=== PATIENT | female | born 1985 | race American Indian/Alaskan Native ===

== ENCOUNTER 2018-12-16 16:10 | Emergency (ER) | payer OTHER ==
[2018-12-16 16:26] VITALS: BP 136/97
[2018-12-16 17:08] LABS: Bilirubin,Urine NEG (Negative); Blood,Urine NEG (Negative); Color,Urine Amber (Yellow); Protein,Urine <15 mg/dL mg/dL (Negative)
[2018-12-16 17:16] LABS: HCG Qualitative,Urine Negative (Negative)
--- NOTE | 2018-12-16 17:26 | Emergency Department Report ---
ED Abdominal Pain HPI - General Chief Complaint: Abdominal Pain Stated Complaint: CROHNS DISEASE/PAIN/BOIL BUTTOCKS Source: patient Mode of arrival: Ambulatory Limitations: No Limitations - History of Present Illness Initial Comments: This is a 33-year-old -Filipino female who presents with abdominal pain for 2 weeks. Past medical history of. She reports right sided abdominal pain that is radiating to spine. She also reports nausea without vomiting, diarrhea with mucus. She also complains of 2 boils to bilateral buttocks for 2 days. Patient states she is soaking frequently with no improvement of symptoms. She reports a past history of boils with Crohn's flare but not usually on buttocks. She reports pain currently is 8 out of 10 on pain scale and constant achy sensation. She denies chest pain, shortness of breath, bleeding, or constipation. MD Complaint: abdominal pain Onset/Timin -: week(s) Location: RUQ, RLQ Radiation: none Migration to: no migration Severity: moderate Severity scale (0 -10): 8 Quality: aching Consistency: constant Improves With: nothing Worsens With: eating Associated Symptoms: nausea, diarrhea. denies: vomiting, fever, chills, constipation, dysuria, hematemesis, hematochezia, melena, hematuria, anorexia, syncope Treatments Prior to Arrival: NSAIDs - Related Data Previous Rx's Medication Instructions Recorded Last Taken Type Acetaminophen/Codeine [Tylenol 1 tab PO Q6H PRN #12 tab 12/16/18 Unknown Rx /Codeine # 3 tab] Ciprofloxacin HCl [Cipro] 500 mg PO BID #20 tablet 12/16/18 Unknown Rx Loperamide [Imodium] 4 mg PO ONCE PRN #14 capsule 12/16/18 Unknown Rx Ondansetron [Zofran Odt] 4 mg PO Q8HR PRN #12 tab.rapdis 12/16/18 Unknown Rx Prednisone [predniSONE 10 mg 10 mg PO .TAPER #1 tab.ds.pk 12/16/18 Unknown Rx (6-Day Pack, 21 Tabs)] Allergies Allergy/AdvReac Type Severity Reaction Status Date / Time fentanyl Allergy Shortness Verified 12/16/18 16:22 of Breath NSAIDS (Non-Steroidal Allergy Shortness Verified 12/16/18 16:22 Anti-Inflamma of Breath pregabalin [From Lyrica] Allergy Shortness Verified 12/16/18 16:22 of Breath tramadol Allergy Shortness Verified 12/16/18 16:22 of Breath ED Review of Systems ROS: Stated complaint: CROHNS DISEASE/PAIN/BOIL BUTTOCKS Other details as noted in HPI Constitutional: denies: chills, fever Respiratory: denies: cough, shortness of breath, wheezing Cardiovascular: denies: chest pain, palpitations Gastrointestinal: abdominal pain, nausea, diarrhea. denies: vomiting, constipation, hematemesis, melena, hematochezia Genitourinary: denies: urgency, dysuria, discharge Musculoskeletal: denies: back pain, joint swelling, arthralgia Skin: lesions (abscess to buttocks). denies: rash Neurological: denies: headache, weakness, paresthesias Psychiatric: denies: anxiety, depression ED Past Medical Hx - Past Medical History Additional medical history: Crohn's, herniated disc - Surgical History Additional Surgical History: C/S - Social History Smoking Status: Current Every Day Smoker Substance Use Type: None - Medications Home Medications: Home Medications Medication Instructions Recorded Confirmed Last Taken Type Acetaminophen/Codeine [Tylenol 1 tab PO Q6H PRN #12 tab 12/16/18 Unknown Rx /Codeine # 3 tab] Ciprofloxacin HCl [Cipro] 500 mg PO BID #20 tablet 12/16/18 Unknown Rx Loperamide [Imodium] 4 mg PO ONCE PRN #14 capsule 12/16/18 Unknown Rx Ondansetron [Zofran Odt] 4 mg PO Q8HR PRN #12 tab.rapdis 12/16/18 Unknown Rx Prednisone [predniSONE 10 mg 10 mg PO .TAPER #1 tab.ds.pk 12/16/18 Unknown Rx (6-Day Pack, 21 Tabs)] ED Physical Exam - General Limitations: No Limitations General appearance: alert, in no apparent distress - Respiratory Respiratory exam: Present: normal lung sounds bilaterally. Absent: respiratory distress - Cardiovascular Cardiovascular Exam: Present: regular rate, normal rhythm. Absent: systolic murmur, diastolic murmur, rubs, gallop - GI/Abdominal GI/Abdominal exam: Present: soft, tenderness (RUQ & RLQ tenderness), normal bowel sounds. Absent: distended, guarding, rebound, rigid, organomegaly, mass, bruit, pulsatile mass, hernia - Back Exam Back exam: Absent: CVA tenderness (R), CVA tenderness (L) - Neurological Exam Neurological exam: Present: alert, oriented X3, normal gait - Psychiatric Psychiatric exam: Present: normal affect, normal mood - Skin Skin exam: Present: warm, dry, intact, normal color, other (1 cm x 2 non- fluctuance nodules to proximal right and left buttock, tenderness, no surrounding cellulitis or drainage). Absent: rash ED Course Vital Signs 12/16/18 12/16/18 16:22 18:08 Temperature 98.8 F Pulse Rate 110 H Respiratory 20 18 Rate Blood Pressure 136/97 O2 Sat by Pulse 97 Oximetry ED Medical Decision Making - Lab Data Result diagrams: 12/16/18 17:30 12/16/18 17:20 Lab Results 12/16/18 12/16/18 12/16/18 Range/Units 16:38 17:20 17:30 WBC 13.1 H (4.5-11.0) K/mm3 RBC 4.00 (3.65-5.03) M/mm3 Hgb 10.7 (10.1-14.3) gm/dl Hct 34.2 (30.3-42.9) % MCV 86 (79-97) fl MCH 27 L (28-32) pg MCHC 31 (30-34) % RDW 18.0 H (13.2-15.2) % Plt Count 387 (140-440) K/mm3 Lymph % (Auto) 17.5 (13.4-35.0) % [place] % (Auto) 7.0 (0.0-7.3) % Eos % (Auto) 1.1 (0.0-4.3) % Baso % (Auto) 0.1 (0.0-1.8) % Lymph # 2.3 (1.2-5.4) K/mm3 [place] # 0.9 H (0.0-0.8) K/mm3 Eos # 0.1 (0.0-0.4) K/mm3 Baso # 0.0 (0.0-0.1) K/mm3 Seg Neutrophils % 74.3 H (40.0-70.0) % Seg Neutrophils # 9.7 H (1.8-7.7) K/mm3 ESR 52 (0-20) mm/Hr Sodium 140 (137-145) mmol/L Potassium 3.8 (3.6-5.0) mmol/L Chloride 102.5 (98-107) mmol/L Carbon Dioxide 25 (22-30) mmol/L Anion Gap 16 mmol/L BUN 4 L (7-17) mg/dL Creatinine 0.7 (0.7-1.2) mg/dL Estimated GFR > 60 ml/min BUN/Creatinine Ratio 6 % Glucose 85 (65-100) mg/dL Calcium 9.1 (8.4-10.2) mg/dL Total Bilirubin 0.20 (0.1-1.2) mg/dL AST 39 (5-40) units/L ALT 35 (7-56) units/L Alkaline Phosphatase 111 (35-129) units/L Total Protein 6.9 (6.3-8.2) g/dL Albumin 3.9 (3.9-5) g/dL Albumin/Globulin Ratio 1.3 % Urine Color Andra (Yellow) Urine Turbidity Clear (Clear) Urine pH 5.0 (5.0-7.0) Ur Specific [place] 1.018 (1.003-1.030) Urine Protein <15 mg/dl (Negative) mg/dL Urine Glucose (UA) Neg (Negative) mg/dL Urine Ketones Tr (Negative) mg/dL Urine Blood Neg (Negative) Urine Nitrite Neg (Negative) Urine Bilirubin Neg (Negative) Urine Urobilinogen 2.0 (<2.0) mg/dL Ur Leukocyte Esterase Neg (Negative) Urine WBC (Auto) 1.0 (0.0-6.0) /HPF Urine RBC (Auto) 1.0 (0.0-6.0) /HPF U Epithel Cells (Auto) 5.0 (0-13.0) /HPF Urine HCG, Qual Negative (Negative) - Radiology Data Radiology results: report reviewed PROCEDURE: CT ABDOMEN PELVIS W CON TECHNIQUE: Computerized axial tomography of the abdomen and pelvis was performed after the IV injection of iodinated nonionic contrast. HISTORY: RUQ, RLQ tenderness COMPARISON: No prior studies are available for comparison. FINDINGS: Visualized lower thorax: No significant abnormality. Liver: Normal size and attenuation. Spleen: Normal size and attenuation. Gallbladder and biliary system: Normal. Pancreas: Normal. Adrenals: Normal. Kidneys: Normal. GI tract: There is no mechanical bowel obstruction. There is mucosal thickening of the right colon and cecum which could indicate acute or chronic colitis. There is no diverticulitis or mass. The appendix is normal. Lymph nodes and mesentery: Normal. Vasculature: Normal. Bladder: Normal. Reproductive organs: Uterus and ovaries are unremarkable.. Peritoneum: There is no ascites or free air, abscess or adenopathy.. Musculoskeletal structures: No significant abnormality. Other: None. IMPRESSION: There is no mechanical bowel obstruction. There is mucosal thickening of the right colon and cecum which could indicate acute or chronic colitis. There is no diverticulitis or mass. The appendix is normal. Uterus and ovaries are unremarkable.. There is no ascites or free air, abscess or adenopathy. - Medical Decision Making Patient was examined by me. Vitals are normal and patient is in no acute distress. Obtained a labs and CT of abdomen and pelvis with contrast. CT dictated by radiologist report reviewed by myself. Leukocytosis, although the labs are unremarkable. There is no mechanical bowel obstruction. There is mucosal thickening of the right colon and cecum which could indicate acute or chronic colitis. There is no diverticulitis or mass. The appendix is normal. Uterus and ovaries are unremarkable. There is no ascites or free air, abscess or adenopathy. On focal exam there are 2 nonfluctuant nodules to bilateral buttocks. Patient informed of results. Start cipro, prednisone taper, zofran, tylenol #3, and loperamide. Plan discussed with patient to discharge home and treat outpatient. He agrees with ER plan. Patient discharged home in stable condition. Follow up with PCP in 2-3 days. Critical care attestation.: If time is entered above; I have spent that time in minutes in the direct care of this critically ill patient, excluding procedure time. ED Disposition Clinical Impression: Acute colitis, Nausea and vomiting in adult, Abscess Diarrhea Qualifiers: Diarrhea type: infectious Qualified Code(s): A09 - Infectious gastroenteritis and colitis, unspecified Abdominal pain Qualifiers: Abdominal location: generalized Qualified Code(s): R10.84 - Generalized abdominal pain Disposition: TO HOME OR SELFCARE Is pt being admited?: No Does the pt Need Aspirin: No Condition: Stable Instructions: Abdominal Pain (ED), Infectious Colitis (ED) Prescriptions: Acetaminophen/Codeine [Tylenol /Codeine # 3 tab] 1 tab PO Q6H PRN #12 tab PRN Reason: Pain , Severe (7-10) Ciprofloxacin HCl [Cipro] 500 mg PO BID #20 tablet Loperamide [Imodium] 4 mg PO ONCE PRN #14 capsule PRN Reason: Diarrhea Ondansetron [Zofran Odt] 4 mg PO Q8HR PRN #12 tab.rapdis PRN Reason: Nausea And Vomiting Prednisone [predniSONE 10 mg (6-Day Pack, 21 Tabs)] 10 mg PO .TAPER #1 tab.ds.pk Referrals: CHAPIS LUNDY MD [Primary Care Provider] - 3-5 Days [facility] [Provider Group] - 3-5 Days Time of Disposition: 21:28
[2018-12-16] MEDS ORDERED: REGLAN IV ONE (17:34)
[2018-12-16] MEDS ORDERED: NACL 0.9% 1000 ML 1,000 ML IV ONE (17:34)
[2018-12-16 17:40] LABS: Basophils % (Auto) 0.1 % (0.0-1.8); Eosinophils # (Auto) 0.1 K/mm3 (0.0-0.4); Eosinophils % (Auto) 1.1 % (0.0-4.3); Hematocrit 34.2 % (30.3-42.9); Hemoglobin 10.7 gm/dl (10.1-14.3); Lymphocytes # (Auto) 2.3 K/mm3 (1.2-5.4); Lymphocytes % (Auto) 17.5 % (13.4-35.0); Mean Corpuscular HGB Conc 31 % (30-34); Mean Corpuscular Volume 86 fl (79-97); Monocytes # (Auto) 0.9 K/mm3 (0.0-0.8); Platelet Count 387 K/mm3 (140-440)
[2018-12-16 17:52] LABS: Alanine Aminotransferase 35 units/L (7-56); Albumin 3.9 g/dL (3.9-5); BUN/Creatinine Ratio 6; Blood Urea Nitrogen 4 mg/dL (7-17); Calcium 9.1 mg/dL (8.4-10.2); Hemolysis Index 8
[2018-12-16] MEDS ORDERED: MORPHINE IV ONE ×2 (18:18→21:40)
[2018-12-16 18:36] LABS: Erythrocyte Sedimentation Rate 52 mm/Hr (0-20)
--- NOTE | 2018-12-16 20:58 | Cat Scan Report ---
FINAL REPORT PROCEDURE: CT ABDOMEN PELVIS W CON TECHNIQUE: Computerized axial tomography of the abdomen and pelvis was performed after the IV inject ion of iodinated nonionic contrast. HISTORY: RUQ, RLQ tenderness COMPARISON: No prior studies are available for comparison. FINDINGS: Visualized lower thorax: No significant abnormality. Liver: Normal size and attenuation. Spleen: Normal size and attenuation. Gallbladder and biliary system: Normal. Pancreas: Normal. Adrenals: Normal. Kidneys: Normal. GI tract: There is no mechanical bowel obstruction. There is mucosal thickening of the right colon an d cecum which could indicate acute or chronic colitis. There is no diverticulitis or mass. The append ix is normal. Lymph nodes and mesentery: Normal. Vasculature: Normal. Bladder: Normal. Reproductive organs: Uterus and ovaries are unremarkable.. Peritoneum: There is no ascites or free air, abscess or adenopathy.. Musculoskeletal structures: No significant abnormality. Other: None. IMPRESSION: There is no mechanical bowel obstruction. There is mucosal thickening of the right colon and cecum which could indicate acute or chronic coliti s. There is no diverticulitis or mass. The appendix is normal. Uterus and ovaries are unremarkable.. There is no ascites or free air, abscess or adenopathy.
[2018-12-16] MEDS ORDERED: MORPHINE ONE (21:43)
[2018-12-16] MEDS ORDERED: LEVAQUIN PO ONE (22:07)
[2018-12-16] MEDS ORDERED: LEVAQUIN ONE (22:11)
== END 2018-12-16 22:10 | disposition home or self-care (01) ==
LOC: ED 16:10
DX: K52.9 Noninfective gastroenteritis and colitis, unspecified (principal); L02.31 Cutaneous abscess of buttock; F17.200 Nicotine dependence, unspecified, uncomplicated; Z88.6 Allergy status to analgesic agent; Z88.8 Allergy status to other drugs, medicaments and biological substances
CPT/HCPCS: 36415; 74177; 80053; 81001; 81025; 85025; 85652; 96361; 96374; 96375; 96376; 99284; J2270; J2765; J7030; Q9967

== ENCOUNTER 2019-10-02 06:14 | Emergency (ER) | payer OTHER ==
[2019-10-02 07:10] LABS: Basophils # (Auto) 0.1 K/mm3 (0.0-0.1); Basophils % (Auto) 0.5 % (0.0-1.8); Eosinophils % (Auto) 0.2 % (0.0-4.3); Hematocrit 41.1 % (30.3-42.9); Hemoglobin 13.3 gm/dl (10.1-14.3); Lymphocytes % (Auto) 27.3 % (13.4-35.0); Mean Corpuscular HGB Conc 32 % (30-34); Mean Corpuscular Volume 85 fl (79-97); Monocytes % (Auto) 9.3 % (0.0-7.3); Platelet Count 462 K/mm3 (140-440); Red Blood Count 4.85 M/mm3 (3.65-5.03); Red Cell Distribution Width 17.7 % (13.2-15.2)
[2019-10-02 07:20] LABS: BUN/Creatinine Ratio 6; Blood Urea Nitrogen 5 mg/dL (7-17); Calcium 10.1 mg/dL (8.4-10.2); Hemolysis Index 4
[2019-10-02 08:04] VITALS: BP 104/84
[2019-10-02] MEDS ORDERED: SODIUM CHLORIDE 0.9% 1000 ML 1,000 ML IV ONE (08:17)
[2019-10-02] MEDS ORDERED: methylPREDNISolone Sod Succinate 125 MG/2 ML INJ IV ONE (08:17)
[2019-10-02] MEDS ORDERED: ONDANSETRON 4 MG/2 ML INJ IV ONE (08:43)
[2019-10-02] MEDS ORDERED: DICYCLOMINE 20 MG/2 ML INJ IM ONE (08:44)
--- NOTE | 2019-10-02 10:12 | Emergency Department Report ---
ED Abdominal Pain HPI - General Chief Complaint: Chest Pain Stated Complaint: CP/CROHNS FLARE UP/ABD/BODY PAIN Time Seen by Provider: 10/02/19 07:46 Source: patient Mode of arrival: Ambulatory Limitations: No Limitations - History of Present Illness MD Complaint: abdominal pain -: Gradual, month(s) Location: diffuse Radiation: none Migration to: no migration Severity scale (0 -10): 3 Quality: cramping, aching Consistency: intermittent Improves With: nothing Worsens With: nothing Context: other (History Crohns report she is not seeing GI and is not taking any medications. Reports she has been to [place], [facility], and [place] for Crohns evaluations. ) Associated Symptoms: nausea, vomiting. denies: diarrhea, fever, chills, constipation, dysuria, hematemesis, hematochezia, melena, hematuria, anorexia, syncope - Related Data Previous Rx's Medication Instructions Recorded Last Taken Type Acetaminophen/Codeine [Tylenol 1 tab PO Q6H PRN #12 tab 12/16/18 Unknown Rx /Codeine # 3 tab] Ciprofloxacin HCl [Cipro] 500 mg PO BID #20 tablet 12/16/18 Unknown Rx Loperamide [Imodium] 4 mg PO ONCE PRN #14 capsule 12/16/18 Unknown Rx Ondansetron [Zofran Odt] 4 mg PO Q8HR PRN #12 tab.rapdis 12/16/18 Unknown Rx Prednisone [predniSONE 10 mg 10 mg PO .TAPER #1 tab.ds.pk 12/16/18 Unknown Rx (6-Day Pack, 21 Tabs)] Allergies Allergy/AdvReac Type Severity Reaction Status Date / Time fentanyl Allergy Shortness Verified 12/16/18 16:22 of Breath NSAIDS (Non-Steroidal Allergy Shortness Verified 12/16/18 16:22 Anti-Inflamma of Breath pregabalin [From Lyrica] Allergy Shortness Verified 12/16/18 16:22 of Breath tramadol Allergy Shortness Verified 12/16/18 16:22 of Breath ED Review of Systems ROS: Stated complaint: CP/CROHNS FLARE UP/ABD/BODY PAIN Other details as noted in HPI Other: GENERAL: No weight change, fatigue, fever, chills, or night sweats SKIN: No changes in skin or hair, no itching, no rashes, no jaundice HEAD: No trauma EYES: No blurriness, tearing, itching, acute visual loss, conjunctival discoloration, or scleral icterus EARS: No hearing loss, tinnitus, vertigo, or earache NOSE: No rhinorrhea, stuffiness, sneezing, itching, or epistaxis MOUTH: No bleeding gums, hoarseness, sore throat, or swelling CARDIAC: No new murmur, chest pain, palpitations, dyspnea on exertion, orthopnea, PND, or edema RESPIRATORY: No shortness of breath, wheeze, cough, sputum production, hemoptysis GI: Abdominal pain. No nausea, vomiting, dysphagia, diarrhea, constipation, he matemesis, melena, hematochezia URINARY: No frequency, urgency, polyuria, dysuria, hematuria, or incontinence MUSCULOSKELETAL: No muscle weakness, joint stiffness, decrease in range of motion, redness, swelling NEUROLOGIC: No headache, syncope, loss of sensation, numbness, tingling, tremors, weakness, paralysis, seizures HEMATOLOGIC: No anemia, easy bruising, bleeding, petechiae, or purpura ENDOCRINE: No hot or cold intolerance, sweating, polyuria, polydipsia or, polyphagia no thyroid problems ED Past Medical Hx - Past Medical History Previous Medical History?: Yes Additional medical history: Crohn's, herniated disc - Surgical History Past Surgical History?: Yes Additional Surgical History: C/S - Social History Smoking Status: Current Every Day Smoker Substance Use Type: None - Medications Home Medications: Home Medications Medication Instructions Recorded Confirmed Last Taken Type Acetaminophen/Codeine [Tylenol 1 tab PO Q6H PRN #12 tab 12/16/18 Unknown Rx /Codeine # 3 tab] Ciprofloxacin HCl [Cipro] 500 mg PO BID #20 tablet 12/16/18 Unknown Rx Loperamide [Imodium] 4 mg PO ONCE PRN #14 capsule 12/16/18 Unknown Rx Ondansetron [Zofran Odt] 4 mg PO Q8HR PRN #12 tab.rapdis 12/16/18 Unknown Rx Prednisone [predniSONE 10 mg 10 mg PO .TAPER #1 tab.ds.pk 12/16/18 Unknown Rx (6-Day Pack, 21 Tabs)] ED Physical Exam - General Limitations: No Limitations - Other Other exam information: GENERAL: Patient in no acute distress HEAD: Normocephalic, atraumatic EYES: PERRLA, EOM intact, no scleral icterus, no conjunctival hemorrhage, visual shen and acuity wnl NOSE: No tenderness, discharge, sinus tenderness MOUTH: No erythema, bleeding, exudate HEART: Regular rate and rhythm, no murmur, S1-S2 are auscultated, no edema, pulses are symmetric LUNGS: No respiratory distress. Bilateral breath sounds, No tachypnea, No retractions, No wheezing, rales, rhonchi ABDOMEN: Normal bowel sounds, abdomen soft, no tenderness, no rebound, no guarding, no distention, no masses, no CVA tenderness MUSCULOSKELETAL: Normal joint range of motion, no redness, no swelling, no tenderness NEUROLOGIC: GCS 15, Alert and Oriented x3, Cranial nerves intact, normal sensation, normal strength, no cerebellar deficit, NIHSS 0 PSYCHIATRIC: Patient hostile aggressive and rude with staff. No homicidal or s uicidal ideation, no hallucinations SKIN: Skin is warm and dry, no wounds, no rashes ED Course Vital Signs 10/02/19 10/02/19 06:24 08:01 Temperature 98.3 F Pulse Rate 132 H 127 H Respiratory 20 22 Rate Blood Pressure 128/98 Blood Pressure 104/84 [Left] O2 Sat by Pulse 100 99 Oximetry ED Medical Decision Making - Lab Data Result diagrams: 10/02/19 06:44 10/02/19 06:44 - Medical Decision Making Patient comfortable. Updated with results. Plan CT abd/pelvis for further evaluation. Patient request discharge. Risks/benefits/alternatives discussed including . Patient expresses understanding and request discharge. Return if any worsening. Critical care attestation.: If time is entered above; I have spent that time in minutes in the direct care of this critically ill patient, excluding procedure time. ED Disposition Clinical Impression: Abdominal pain Qualifiers: Abdominal location: unspecified location Qualified Code(s): R10.9 - Unspecified abdominal pain Disposition: DC-07 LEFT AGAINST MED ADVICE Is pt being admited?: No Condition: Stable Instructions: Abdominal Pain (ED) Referrals: BRIAN HEARN MD [Primary Care Provider] - 3-5 Days Forms: AMA Form Time of Disposition: 10:12
== END 2019-10-02 10:21 | disposition left against medical advice (07) ==
LOC: ED 06:14
DX: R10.84 Generalized abdominal pain (principal); R11.2 Nausea with vomiting, unspecified; F17.200 Nicotine dependence, unspecified, uncomplicated; Z98.890 Other specified postprocedural states; Z79.899 Other long term (current) drug therapy; Z88.6 Allergy status to analgesic agent; Z88.8 Allergy status to other drugs, medicaments and biological substances
CPT/HCPCS: 36415; 80048; 84484; 84703; 85025; 85379; 93005; 93010; 96361; 96374; 96375; 99284; J0500; J2405; J2930; J7030

== ENCOUNTER 2020-02-04 09:44 | Emergency (ER) | payer OTHER ==
[2020-02-04 11:16] VITALS: BP 152/92
--- NOTE | 2020-02-04 11:19 | Event Note ---
ED Screening Note Date of service: 02/04/20 Time: 11:18 ED Screening Note: 34 y/o comes in for 1 day history of lower abd pain and back pain. This initial assessment/diagnostic orders/clinical plan/treatment(s) is/are subject to change based on patients health status, clinical progression and re- assessment by fellow clinical providers in the ED. Further treatment and workup at subsequent clinical providers discretion. Patient/guardian urged not to elope from the ED as their condition may be serious if not clinically assessed and managed. Initial orders include:
[2020-02-04 12:42] LABS: Bilirubin,Urine NEG (Negative); Blood,Urine SM (Negative); Color,Urine Yellow (Yellow); Mucus,Urine 1+ /HPF; Protein,Urine <15 mg/dL mg/dL (Negative); Urobilinogen,Urine < 2.0 mg/dL (<2.0); WBC,Urine < 1.0 /HPF (0.0-6.0)
[2020-02-04 12:48] LABS: HCG Qualitative,Urine Negative (Negative)
== END 2020-02-04 12:27 ==
LOC: ED 09:44
DX: R51 Headache (principal); Z53.21 Procedure and treatment not carried out due to patient leaving prior to being seen by health care provider
CPT/HCPCS: 81001; 81025

== ENCOUNTER 2020-07-15 17:36 | Emergency (ER) | payer OTHER ==
[2020-07-15 17:51] VITALS: BP 144/95
--- NOTE | 2020-07-15 21:09 | Emergency Department Report ---
Chief Complaint: Medical Clearance Stated Complaint: ABD PAIN,BACK PAINS Time Seen by Provider: 07/15/20 21:01 - HPI History of Present Illness: 35-year-old -[place] female presents to the emergency room reporting that she has been having symptoms and would like a test. Patient denies any abdominal pain pelvic pain vaginal bleeding or vaginal discharge. Patient reports she has a past medical history of Crohn's disease. Patient states that her last menstrual period was around in February. Patient states that she did a home test and it reported negative. - Exam Vital Signs: Vital Signs 07/15/20 17:50 Temperature 98.3 F Pulse Rate 95 H Respiratory 16 Rate Blood Pressure 144/95 [Right] O2 Sat by Pulse 100 Oximetry Physical Exam: Alert and oriented x3 no acute distress nontoxic in appearance Ambulatory without difficulties. MSE screening note: Focused history and physical exam performed. Due to findings the following was ordered: 35-year-old -[place] female presents to the emergency room reporting that she has been having symptoms and would like a test. Patient denies any abdominal pain pelvic pain vaginal bleeding or vaginal discharge. Patient reports she has a past medical history of Crohn's disease. Patient states that her last menstrual period was around in February. Patient states that she did a home test and it reported negative. Discussed with patient that she can follow-up with [facility] or a center to get a test. I discussed with patient I will place a referral for a GI provider and [facility] as well as her primary care provider as she is recently moved here from [place]. Patient verbalized understanding and very ap preciative. ED Disposition for MSE Disposition: Z-07 MED SCREENING EXAM-LEFT Is pt being admited?: No Does the pt Need Aspirin: No Condition: Stable Additional Instructions: Encourage patient to follow-up with [facility] for test. Also discussed with patient there is a center in [place] that does nothing but test. 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 Also referred patient to a primary care provider as she is new to the area. Referrals: FLORENCE QUACH MD [Primary Care Provider] - 3-5 Days [facility] [Provider Group] - 3-5 Days [facility] [Provider Group] - 3-5 Days [facility] [Provider Group] - 3-5 Days [facility] [Provider Group] - 3-5 Days
== END 2020-07-16 00:35 | disposition left against medical advice (07) ==
LOC: ED 17:36
DX: R10.9 Unspecified abdominal pain (principal); M54.6 Pain in thoracic spine; Z53.21 Procedure and treatment not carried out due to patient leaving prior to being seen by health care provider

== ENCOUNTER 2020-09-06 12:46 | Emergency (ER) | payer OTHER ==
[2020-09-06 13:35] VITALS: BP 147/94
[2020-09-06] MEDS ORDERED: dexAMETHasone 4 MG/ML VIAL PO ONE (13:45)
[2020-09-06] MEDS ORDERED: PENICILLIN G BENZATHINE 1.2 MILLION UNIT/2 ML INJ IM STA (13:45)
--- NOTE | 2020-09-06 13:57 | Emergency Department Report ---
ED ENT HPI - General Chief complaint: Sore Throat Stated complaint: THROAT PAIN/BODYACHE/HEADACHE Time Seen by Provider: 09/06/20 13:43 Source: patient Mode of arrival: Ambulatory Limitations: No Limitations - History of Present Illness Initial comments: 35-year-old -[place] female presents emergency department complaining of a few day history of odynophagia and sore throat which is worse with eating and drinking no fevers chills or sweats no hemoptysis no hematemesis no hematochezia. Pain did radiate to her left ear. She also has a little bump on her arm which he says is burning which is unknown related. Reports no diarrhea or no pharyngeal trauma. Has trouble swallowing pills due to the pain but usually she is able to tolerate swallowing pills MD complaint: sore throat - Related Data Previous Rx's Medication Instructions Recorded Last Taken Type Acetaminophen/Codeine [Tylenol 1 tab PO Q6H PRN #12 tab 12/16/18 Unknown Rx /Codeine # 3 tab] Ciprofloxacin HCl [Cipro] 500 mg PO BID #20 tablet 12/16/18 Unknown Rx Loperamide [Imodium] 4 mg PO ONCE PRN #14 capsule 12/16/18 Unknown Rx Ondansetron [Zofran Odt] 4 mg PO Q8HR PRN #12 tab.rapdis 12/16/18 Unknown Rx Prednisone [predniSONE 10 mg 10 mg PO .TAPER #1 tab.ds.pk 12/16/18 Unknown Rx (6-Day Pack, 21 Tabs)] Chlorhexidine Mouthwash [Peridex] 15 ml MM BID #1 bottle 09/06/20 Unknown Rx Lidocaine Viscous 2% 5 ml MM Q3H PRN #120 udc 09/06/20 Unknown Rx Allergies Allergy/AdvReac Type Severity Reaction Status Date / Time fentanyl Allergy Shortness Verified 12/16/18 16:22 of Breath NSAIDS (Non-Steroidal Allergy Shortness Verified 12/16/18 16:22 Anti-Inflamma of Breath pregabalin [From Lyrica] Allergy Shortness Verified 12/16/18 16:22 of Breath tramadol Allergy Shortness Verified 12/16/18 16:22 of Breath ED Dental HPI - General Chief complaint: Sore Throat Stated complaint: THROAT PAIN/BODYACHE/HEADACHE Time Seen by Provider: 09/06/20 13:43 Source: patient Mode of arrival: Ambulatory Limitations: No Limitations - Related Data Previous Rx's Medication Instructions Recorded Last Taken Type Acetaminophen/Codeine [Tylenol 1 tab PO Q6H PRN #12 tab 12/16/18 Unknown Rx /Codeine # 3 tab] Ciprofloxacin HCl [Cipro] 500 mg PO BID #20 tablet 12/16/18 Unknown Rx Loperamide [Imodium] 4 mg PO ONCE PRN #14 capsule 12/16/18 Unknown Rx Ondansetron [Zofran Odt] 4 mg PO Q8HR PRN #12 tab.rapdis 12/16/18 Unknown Rx Prednisone [predniSONE 10 mg 10 mg PO .TAPER #1 tab.ds.pk 12/16/18 Unknown Rx (6-Day Pack, 21 Tabs)] Chlorhexidine Mouthwash [Peridex] 15 ml MM BID #1 bottle 09/06/20 Unknown Rx Lidocaine Viscous 2% 5 ml MM Q3H PRN #120 udc 09/06/20 Unknown Rx Allergies Allergy/AdvReac Type Severity Reaction Status Date / Time fentanyl Allergy Shortness Verified 12/16/18 16:22 of Breath NSAIDS (Non-Steroidal Allergy Shortness Verified 12/16/18 16:22 Anti-Inflamma of Breath pregabalin [From Lyrica] Allergy Shortness Verified 12/16/18 16:22 of Breath tramadol Allergy Shortness Verified 12/16/18 16:22 of Breath ED Review of Systems ROS: Stated complaint: THROAT PAIN/BODYACHE/HEADACHE Other details as noted in HPI Comment: All other systems reviewed and negative ED Past Medical Hx - Past Medical History Previous Medical History?: Yes Additional medical history: Crohn's, herniated disc - Surgical History Past Surgical History?: Yes Additional Surgical History: C section - Social History Smoking Status: Current Every Day Smoker Substance Use Type: None - Medications Home Medications: Home Medications Medication Instructions Recorded Confirmed Last Taken Type Acetaminophen/Codeine [Tylenol 1 tab PO Q6H PRN #12 tab 12/16/18 Unknown Rx /Codeine # 3 tab] Ciprofloxacin HCl [Cipro] 500 mg PO BID #20 tablet 12/16/18 Unknown Rx Loperamide [Imodium] 4 mg PO ONCE PRN #14 capsule 12/16/18 Unknown Rx Ondansetron [Zofran Odt] 4 mg PO Q8HR PRN #12 tab.rapdis 12/16/18 Unknown Rx Prednisone [predniSONE 10 mg 10 mg PO .TAPER #1 tab.ds.pk 12/16/18 Unknown Rx (6-Day Pack, 21 Tabs)] Chlorhexidine Mouthwash [Peridex] 15 ml MM BID #1 bottle 09/06/20 Unknown Rx Lidocaine Viscous 2% 5 ml MM Q3H PRN #120 udc 09/06/20 Unknown Rx ED Physical Exam - General Limitations: No Limitations General appearance: alert, in no apparent distress - Head Head exam: Present: atraumatic, normocephalic - Eye Eye exam: Present: normal appearance, PERRL, EOMI Pupils: Present: normal accommodation - ENT ENT exam: Present: mucous membranes moist, TM's normal bilaterally, other (Pharynx is red swollen with erythema no exudate. Tongue and uvula are normal size no drooling.) - Neck Neck exam: Present: normal inspection, lymphadenopathy (Left tonsillar lymphadenopathy) - Respiratory Respiratory exam: Present: normal lung sounds bilaterally. Absent: respiratory distress - Cardiovascular Cardiovascular Exam: Present: regular rate, normal rhythm. Absent: systolic murmur, diastolic murmur, rubs, gallop - GI/Abdominal GI/Abdominal exam: Present: soft, normal bowel sounds - Extremities Exam Extremities exam: Present: normal inspection - Back Exam Back exam: Present: normal inspection - Neurological Exam Neurological exam: Present: alert, oriented X3 - Psychiatric Psychiatric exam: Present: normal affect, normal mood - Skin Skin exam: Present: warm, dry, intact, normal color. Absent: rash ED Course Vital Signs 09/06/20 13:33 Temperature 98.5 F Pulse Rate 88 Respiratory 18 Rate Blood Pressure 147/94 O2 Sat by Pulse 100 Oximetry Critical care attestation.: If time is entered above; I have spent that time in minutes in the direct care of this critically ill patient, excluding procedure time. ED Disposition Clinical Impression: Pharyngitis Disposition: DC-01 TO HOME OR SELFCARE Is pt being admited?: No Does the pt Need Aspirin: No Condition: Stable Instructions: Pharyngitis (ED) Referrals: [facility] [Provider Group] - 3-5 Days
== END 2020-09-06 14:26 | disposition home or self-care (01) ==
LOC: ED 12:46
DX: J02.9 Acute pharyngitis, unspecified (principal); F17.200 Nicotine dependence, unspecified, uncomplicated; Z88.8 Allergy status to other drugs, medicaments and biological substances; Z79.899 Other long term (current) drug therapy; Z98.890 Other specified postprocedural states
CPT/HCPCS: 96372; 99282; J0561; J1100

== ENCOUNTER 2022-07-18 16:30 | Emergency (ER) | payer OTHER ==
[2022-07-18] MEDS ORDERED: ONDANSETRON 4 MG/2 ML INJ IV ONE (22:38)
[2022-07-18] MEDS ORDERED: SODIUM CHLORIDE 0.9% 1000 ML 1,000 ML IV ONE (22:38)
[2022-07-18] MEDS ORDERED: methylPREDNISolone Sod Succinate 125 MG/2 ML INJ IV ONE (22:40)
--- NOTE | 2022-07-18 22:45 | Emergency Department Report ---
ED Abdominal Pain HPI - General Chief Complaint: Abdominal Pain Stated Complaint: ABDOMINAL PAIN Time Seen by Provider: 07/18/22 22:38 Source: patient, EMS Mode of arrival: Stretcher Limitations: No Limitations - History of Present Illness Initial Comments: 37-year-old female with a history of Crohn's disease brought in by [employer] police with diffuse abdominal pain associated with nonbloody emesis with nausea that started about a week ago progressively getting worse. Patient also reports some nonbloody diarrhea as well. She has not been able to tolerate any fluids or food. No fever or chills reported. No other modifying or associated factors reported. - Related Data Previous Rx's Medication Instructions Recorded Last Taken Type Acetaminophen/Codeine [Tylenol 1 tab PO Q6H PRN #12 tab 12/16/18 Unknown Rx /Codeine # 3 tab] Ciprofloxacin HCl [Cipro] 500 mg PO BID #20 tablet 12/16/18 Unknown Rx Loperamide [Imodium] 4 mg PO ONCE PRN #14 capsule 12/16/18 Unknown Rx Ondansetron [Zofran Odt] 4 mg PO Q8HR PRN #12 tab.rapdis 12/16/18 Unknown Rx Prednisone [predniSONE 10 mg 10 mg PO .TAPER #1 tab.ds.pk 12/16/18 Unknown Rx (6-Day Pack, 21 Tabs)] Chlorhexidine Mouthwash [Peridex] 15 ml MM BID #1 bottle 09/06/20 Unknown Rx Lidocaine Viscous 2% 5 ml MM Q3H PRN #120 udc 09/06/20 Unknown Rx Metoclopramide [Reglan] 10 mg PO TID 5 Days #15 tab NS 07/19/22 Unknown Rx Allergies Allergy/AdvReac Type Severity Reaction Status Date / Time fentanyl Allergy Shortness Verified 07/18/22 17:18 of Breath NSAIDS (Non-Steroidal Allergy Shortness Verified 07/18/22 17:18 Anti-Inflamma of Breath pregabalin [From Lyrica] Allergy Shortness Verified 07/18/22 17:18 of Breath tramadol Allergy Shortness Verified 07/18/22 17:18 of Breath ED Review of Systems ROS: Stated complaint: ABDOMINAL PAIN Other details as noted in HPI Comment: All other systems reviewed and negative Gastrointestinal: abdominal pain, nausea, vomiting, diarrhea ED Past Medical Hx - Past Medical History Additional medical history: Crohn's, herniated disc - Surgical History Additional Surgical History: C section - Social History Smoking Status: Current Every Day Smoker Substance Use Type: None - Medications Home Medications: Home Medications Medication Instructions Recorded Confirmed Last Taken Type Acetaminophen/Codeine [Tylenol 1 tab PO Q6H PRN #12 tab 12/16/18 Unknown Rx /Codeine # 3 tab] Ciprofloxacin HCl [Cipro] 500 mg PO BID #20 tablet 12/16/18 Unknown Rx Loperamide [Imodium] 4 mg PO ONCE PRN #14 capsule 12/16/18 Unknown Rx Ondansetron [Zofran Odt] 4 mg PO Q8HR PRN #12 tab.rapdis 12/16/18 Unknown Rx Prednisone [predniSONE 10 mg 10 mg PO .TAPER #1 tab.ds.pk 12/16/18 Unknown Rx (6-Day Pack, 21 Tabs)] Chlorhexidine Mouthwash [Peridex] 15 ml MM BID #1 bottle 09/06/20 Unknown Rx Lidocaine Viscous 2% 5 ml MM Q3H PRN #120 udc 09/06/20 Unknown Rx Metoclopramide [Reglan] 10 mg PO TID 5 Days #15 tab NS 07/19/22 Unknown Rx ED Physical Exam - General Limitations: No Limitations General appearance: alert, in no apparent distress - Head Head exam: Present: normal inspection - Eye Eye exam: Present: normal appearance Pupils: Present: normal accommodation - ENT ENT exam: Present: normal exam, normal orophraynx, mucous membranes dry - Neck Neck exam: Present: normal inspection, full ROM. Absent: tenderness - Respiratory Respiratory exam: Present: normal lung sounds bilaterally. Absent: respiratory distress, accessory muscle use - Cardiovascular Cardiovascular Exam: Present: regular rate, normal rhythm, normal heart sounds - GI/Abdominal GI/Abdominal exam: Present: soft, tenderness (Diffusely mild), normal bowel sounds. Absent: distended - Extremities Exam Extremities exam: Present: normal inspection, normal capillary refill. Absent: tenderness, pedal edema - Back Exam Back exam: Absent: tenderness, CVA tenderness (R), CVA tenderness (L) - Neurological Exam Neurological exam: Present: alert, oriented X3 - Psychiatric Psychiatric exam: Present: normal affect, anxious - Skin Skin exam: Present: warm, normal color ED Course Vital Signs 07/18/22 07/18/22 07/18/22 17:15 21:18 21:19 Temperature 98.8 F Pulse Rate 62 54 L Respiratory 14 12 Rate Blood Pressure Blood Pressure 134/80 129/75 [Left] O2 Sat by Pulse 98 100 100 Oximetry 07/18/22 07/18/22 07/18/22 21:30 22:00 22:06 Temperature Pulse Rate Respiratory Rate Blood Pressure 129/75 77/53 77/53 Blood Pressure [Left] O2 Sat by Pulse 100 100 100 Oximetry 07/18/22 07/18/22 07/18/22 22:30 23:00 23:30 Temperature Pulse Rate Respiratory Rate Blood Pressure 128/84 119/68 152/75 Blood Pressure [Left] O2 Sat by Pulse 100 100 99 Oximetry 07/19/22 07/19/22 07/19/22 00:00 00:30 01:05 Temperature Pulse Rate Respiratory Rate Blood Pressure 115/66 125/68 125/68 Blood Pressure [Left] O2 Sat by Pulse 99 99 97 Oximetry 07/19/22 01:07 Temperature Pulse Rate 54 L Respiratory 14 Rate Blood Pressure Blood Pressure 115/64 [Left] O2 Sat by Pulse 100 Oximetry ED Medical Decision Making - Lab Data Result diagrams: 07/18/22 22:49 07/18/22 22:49 - Radiology Data FINDINGS: LOWER CHEST: No significant abnormality of the imaged chest. LIVER: No focal lesion. No acute findings. GALLBLADDER / BILE DUCTS: No significant abnormality. Biliary ducts grossly unremarkable. SPLEEN: No significant abnormality. PANCREAS: No significant abnormality. ADRENALS: No significant abnormality. KIDNEYS/URETERS: No stones or hydronephrosis. No solid renal lesion. STOMACH / DUODENUM / SMALL BOWEL: The stomach, duodenum, and small bowel demonstrate no significant abnormality. No specific abnormality of the mesentery demonstrated. COLON: No significant abnormality. APPENDIX: No significant abnormality. PERITONEUM: No free air or free fluid are present within the abdomen or pelvis. LYMPH NODES: No significant adenopathy. AORTA / ARTERIES: No significant abnormality. IVC / VEINS: No significant abnormality. URINARY BLADDER: No significant abnormality. REPRODUCTIVE ORGANS: No significant abnormality. Small uterine fibroid. SKELETAL SYSTEM: No significant abnormality. ADDITIONAL ABDOMINAL/PELVIC FINDINGS: None. IMPRESSION: 1. No acute findings within the abdomen or pelvis. - Medical Decision Making Here with abdominal pain--this is likely as a result of Crohn's flare up but differential could be but not limited to appendicitis, diverticulitis, cholecystitis, cholelithiasis, nephrolithiasis, gastritis, pancreatitis, duodenitis, colitis, irritable bowel syndrome, cystitis, so in order to rule this out we will go ahead and order routine acute abdomen that include CBC, CMP, urinalysis, and CT imaging of the abdomen/pelvic. In the meantime while waiting for the above labs we will go ahead and give IV fluid 1 L bolus x1, antiemesis and pain reliever. CT abd/pel -- noted with no acute findings --- pt reassured and d/c home on prednisone and zofran with close follow up with her PCP and warning to return if symptoms recur or worsen Critical care attestation.: If time is entered above; I have spent that time in minutes in the direct care of this critically ill patient, excluding procedure time. ED Disposition Clinical Impression: Nausea and vomiting Qualifiers: Vomiting type: unspecified Qualified Code(s): R11.2 - Nausea with vomiting, unspecified Abdominal pain Qualifiers: Abdominal location: unspecified location Qualified Code(s): R10.9 - Unspecified abdominal pain Disposition: 01 HOME / SELF CARE / HOMELESS Is pt being admited?: No Does the pt Need Aspirin: No Condition: Stable Instructions: Abdominal Pain (ED), Abdominal Pain, Adult, [id number], Nausea and Vomiting, Adult, [id number] Additional Instructions: Start with bland diet and advance as tolerated Increase your daily fluid to help your hydration It is okay to take your Zofran antiemesis as prescribed to continue to help your symptoms Call and follow-up with your primary doctor in the next 3 to 5 days for progress Please do not hesitate to call or return to emergency if your symptoms worsen Prescriptions: Metoclopramide [Reglan] 10 mg PO TID 5 Days #15 tab NS Referrals: STEPHANIE WIGGINS MD [Referring] - 3-5 Days Time of Disposition: 02:09
[2022-07-18] MEDS ORDERED: MORPHINE 4 MG/1 ML INJ IV ONE (23:14)
[2022-07-18 23:31] LABS: Hematocrit 36.7 % (30.3-42.9); Hemoglobin 12.3 gm/dl (10.1-14.3); Mean Corpuscular HGB Conc 33 % (30-34); Mean Corpuscular Volume 91 fl (79-97); Platelet Count 274 K/mm3 (140-440); Red Blood Count 4.06 M/mm3 (3.65-5.03); Red Cell Distribution Width 14.5 % (13.2-15.2)
[2022-07-18 23:37] LABS: INR 1.05 (0.87-1.13)
[2022-07-18 23:56] LABS: Alanine Aminotransferase 23 units/L (7-56); Albumin 3.5 g/dL (3.9-5); Blood Urea Nitrogen 8 mg/dL (7-17); Calcium 7.9 mg/dL (8.4-10.2); Hemolysis Index 195
[2022-07-19 00:03] LABS: BUN/Creatinine Ratio 13; Bilirubin,Direct < 0.2 mg/dL (0-0.2)
[2022-07-19 00:13] LABS: Total Cells Counted 100
[2022-07-19 00:14] LABS: Platelet Estimate Consistent w Auto
[2022-07-19 00:47] LABS: Color,Urine Yellow (Yellow)
[2022-07-19 00:50] LABS: Bacteria,Urine 1+ /HPF (Negative); Mucus,Urine FEW /HPF
[2022-07-19 00:51] LABS: HCG Qualitative,Urine Negative (Negative)
--- NOTE | 2022-07-19 01:41 | Cat Scan Report ---
CT ABDOMEN AND PELVIS WITH CONTRAST INDICATION / CLINICAL INFORMATION: Abdominal Pain. TECHNIQUE: Axial CT images were obtained through the abdomen and pelvis after IV contrast. All CT sc ans at this location are performed using CT dose reduction for ALARA by means of automated exposure c ontrol. COMPARISON: None available. FINDINGS: LOWER CHEST: No significant abnormality of the imaged chest. LIVER: No focal lesion. No acute findings. GALLBLADDER / BILE DUCTS: No significant abnormality. Biliary ducts grossly unremarkable. SPLEEN: No significant abnormality. PANCREAS: No significant abnormality. ADRENALS: No significant abnormality. KIDNEYS/URETERS: No stones or hydronephrosis. No solid renal lesion. STOMACH / DUODENUM / SMALL BOWEL: The stomach, duodenum, and small bowel demonstrate no significant a bnormality. No specific abnormality of the mesentery demonstrated. COLON: No significant abnormality. APPENDIX: No significant abnormality. PERITONEUM: No free air or free fluid are present within the abdomen or pelvis. LYMPH NODES: No significant adenopathy. AORTA / ARTERIES: No significant abnormality. IVC / VEINS: No significant abnormality. URINARY BLADDER: No significant abnormality. REPRODUCTIVE ORGANS: No significant abnormality. Small uterine fibroid. SKELETAL SYSTEM: No significant abnormality. ADDITIONAL ABDOMINAL/PELVIC FINDINGS: None. IMPRESSION: 1. No acute findings within the abdomen or pelvis. Signer Name: Toby Martinez II, MD Signed: 07/19/2022 1:36 AM Workstation Name: [id number]
[2022-07-19 02:34] VITALS: BP 136/71
== END 2022-07-19 02:35 | disposition home or self-care (01) ==
LOC: ED 16:30
DX: R10.9 Unspecified abdominal pain (principal); R11.2 Nausea with vomiting, unspecified; F17.200 Nicotine dependence, unspecified, uncomplicated; Z88.8 Allergy status to other drugs, medicaments and biological substances; Z88.6 Allergy status to analgesic agent
CPT/HCPCS: 36415; 74177; 80048; 80076; 81001; 81025; 85007; 85025; 85610; 96361; 96374; 96375; 99284; J2270; J2405; J2930; J7030; Q9967

== ENCOUNTER 2022-08-16 21:28 | Emergency (ER) | payer MEDICAID, OTHER ==
[2022-08-17] MEDS ORDERED: SODIUM CHLORIDE 0.9% 1000 ML 1,000 ML IV ONE (03:11)
[2022-08-17] MEDS ORDERED: ONDANSETRON 4 MG/2 ML INJ IV ONE (03:11)
[2022-08-17 03:47] LABS: Basophils % (Auto) 0.3 % (0.0-1.8); Eosinophils # (Auto) 0.2 K/mm3 (0.0-0.4); Eosinophils % (Auto) 2.9 % (0.0-4.3); Hematocrit 37.3 % (30.3-42.9); Hemoglobin 11.9 gm/dl (10.1-14.3); Lymphocytes # (Auto) 3.3 K/mm3 (1.2-5.4); Lymphocytes % (Auto) 51.4 % (13.4-35.0); Mean Corpuscular HGB Conc 32 % (30-34); Mean Corpuscular Volume 91 fl (79-97); Monocytes # (Auto) 0.5 K/mm3 (0.0-0.8); Monocytes % (Auto) 8.6 % (0.0-7.3); Platelet Count 289 K/mm3 (140-440); Red Blood Count 4.09 M/mm3 (3.65-5.03); Red Cell Distribution Width 14.2 % (13.2-15.2)
[2022-08-17] MEDS ORDERED: MORPHINE 4 MG/1 ML INJ IV ONE (03:55)
[2022-08-17] MEDS ORDERED: HYDROcodone/ACETAMINOPHEN 5-325 MG TAB PO ONE (03:57)
[2022-08-17 04:00] LABS: Alanine Aminotransferase 23 units/L (7-56); Albumin 3.8 g/dL (3.9-5); Blood Urea Nitrogen 10 mg/dL (7-17); Calcium 9.5 mg/dL (8.4-10.2); Hemolysis Index 7
[2022-08-17 04:03] LABS: BUN/Creatinine Ratio 14
--- NOTE | 2022-08-17 04:43 | Emergency Department Report ---
ED Abdominal Pain HPI - General Chief Complaint: Abdominal Pain Stated Complaint: ABD PAIN Time Seen by Provider: 08/17/22 04:32 Source: EMS Mode of arrival: Stretcher Limitations: No Limitations - History of Present Illness Initial Comments: Is a 37-year-old female MD Complaint: abdominal pain Severity scale (0 -10): 0 - Related Data Previous Rx's Medication Instructions Recorded Last Taken Type Acetaminophen/Codeine [Tylenol 1 tab PO Q6H PRN #12 tab 12/16/18 Unknown Rx /Codeine # 3 tab] Ciprofloxacin HCl [Cipro] 500 mg PO BID #20 tablet 12/16/18 Unknown Rx Loperamide [Imodium] 4 mg PO ONCE PRN #14 capsule 12/16/18 Unknown Rx Prednisone [predniSONE 10 mg 10 mg PO .TAPER #1 tab.ds.pk 12/16/18 Unknown Rx (6-Day Pack, 21 Tabs)] Chlorhexidine Mouthwash [Peridex] 15 ml MM BID #1 bottle 09/06/20 Unknown Rx Lidocaine Viscous 2% 5 ml MM Q3H PRN #120 udc 09/06/20 Unknown Rx Metoclopramide [Reglan] 10 mg PO TID 5 Days #15 tab NS 07/19/22 Unknown Rx Dicyclomine [Bentyl] 10 mg PO QID #30 capsule 08/17/22 Unknown Rx Ondansetron [Zofran ODT TAB] 4 mg PO Q8HR PRN #12 tab.rapdis 08/17/22 Unknown Rx Allergies Allergy/AdvReac Type Severity Reaction Status Date / Time fentanyl Allergy Shortness Verified 07/18/22 17:18 of Breath NSAIDS (Non-Steroidal Allergy Shortness Verified 07/18/22 17:18 Anti-Inflamma of Breath pregabalin [From Lyrica] Allergy Shortness Verified 07/18/22 17:18 of Breath tramadol Allergy Shortness Verified 07/18/22 17:18 of Breath ED Review of Systems ROS: Stated complaint: ABD PAIN Other details as noted in HPI Constitutional: denies: chills, fever Eyes: denies: eye pain, eye discharge, vision change ENT: denies: ear pain, throat pain Respiratory: denies: cough, shortness of breath, wheezing Cardiovascular: denies: chest pain, palpitations Endocrine: no symptoms reported Gastrointestinal: denies: abdominal pain, nausea, vomiting, diarrhea Genitourinary: denies: urgency, dysuria, discharge Musculoskeletal: denies: back pain, joint swelling, arthralgia Skin: denies: rash, lesions Neurological: denies: headache, weakness, paresthesias, abnormal gait, vertigo Psychiatric: denies: anxiety, depression Hematological/Lymphatic: denies: easy bleeding, easy bruising ED Past Medical Hx - Past Medical History Previous Medical History?: Yes Hx Hypertension: Yes Additional medical history: Crohn's, herniated disc - Surgical History Past Surgical History?: Yes Additional Surgical History: C section - Social History Smoking Status: Unknown if ever smoked Substance Use Type: None - Medications Home Medications: Home Medications Medication Instructions Recorded Confirmed Last Taken Type Acetaminophen/Codeine [Tylenol 1 tab PO Q6H PRN #12 tab 12/16/18 Unknown Rx /Codeine # 3 tab] Ciprofloxacin HCl [Cipro] 500 mg PO BID #20 tablet 12/16/18 Unknown Rx Loperamide [Imodium] 4 mg PO ONCE PRN #14 capsule 12/16/18 Unknown Rx Prednisone [predniSONE 10 mg 10 mg PO .TAPER #1 tab.ds.pk 12/16/18 Unknown Rx (6-Day Pack, 21 Tabs)] Chlorhexidine Mouthwash [Peridex] 15 ml MM BID #1 bottle 09/06/20 Unknown Rx Lidocaine Viscous 2% 5 ml MM Q3H PRN #120 udc 09/06/20 Unknown Rx Metoclopramide [Reglan] 10 mg PO TID 5 Days #15 tab NS 07/19/22 Unknown Rx Dicyclomine [Bentyl] 10 mg PO QID #30 capsule 08/17/22 Unknown Rx Ondansetron [Zofran ODT TAB] 4 mg PO Q8HR PRN #12 tab.rapdis 08/17/22 Unknown Rx ED Physical Exam - General Limitations: No Limitations General appearance: alert, in no apparent distress - Head Head exam: Present: atraumatic, normocephalic - Eye Eye exam: Present: normal appearance, EOMI Pupils: Present: normal accommodation - ENT ENT exam: Present: mucous membranes moist - Neck Neck exam: Present: normal inspection, full ROM. Absent: tenderness, lymphadenopathy - Respiratory Respiratory exam: Present: normal lung sounds bilaterally. Absent: respiratory distress, wheezes, rales, stridor, chest wall tenderness, decreased breath sounds - Cardiovascular Cardiovascular Exam: Present: regular rate, normal rhythm, normal heart sounds. Absent: systolic murmur, diastolic murmur, rubs, gallop - GI/Abdominal GI/Abdominal exam: Present: soft, normal bowel sounds. Absent: distended, guarding, rebound, rigid - Rectal Rectal exam: Present: deferred - Extremities Exam Extremities exam: Present: normal inspection, full ROM, normal capillary refill. Absent: tenderness - Back Exam Back exam: Present: normal inspection, full ROM. Absent: CVA tenderness (L) - Neurological Exam Neurological exam: Present: alert, oriented X3, CN II-XII intact, normal gait - Expanded Neurological Exam Expanded Patient oriented to: Present: person, place, time Speech: Present: fluid speech Motor strength exam: RUE: 5, LUE: 5, RLE: 5, LLE: 5 Best Eye Response ([place]): (4) open spontaneously Best Motor Response ([place]): (6) obeys commands Best Verbal Response ([place]): (5) oriented [place] Total: 15 - Psychiatric Psychiatric exam: Present: normal affect, normal mood - Skin Skin exam: Present: warm, dry, intact, normal color. Absent: rash ED Course Vital Signs 08/16/22 08/17/22 21:30 04:00 Temperature 97.0 F L Pulse Rate 86 Respiratory 16 18 Rate Blood Pressure 142/90 O2 Sat by Pulse 99 Oximetry ED Medical Decision Making - Lab Data Result diagrams: 08/17/22 03:22 08/17/22 03:22 - Medical Decision Making Abdominal pain is improved. Patient tolerating p.o. intake without nausea or vomiting. There is no fevers no chills labs are nonactionable. Plan DC patient released to custody of police department. Follow-up with [facility] doctor return to emergency department for symptoms worsen. Critical care attestation.: If time is entered above; I have spent that time in minutes in the direct care of this critically ill patient, excluding procedure time. ED Disposition Clinical Impression: Abdominal pain Qualifiers: Abdominal location: generalized Qualified Code(s): R10.84 - Generalized abdominal pain Disposition: 01 HOME / SELF CARE / HOMELESS Is pt being admited?: No Does the pt Need Aspirin: No Condition: Stable Instructions: Abdominal Pain (ED), Abdominal Pain, Adult, [id number] Additional Instructions: Take all medications as prescribed, continue to hydrate. Follow-up with your primary care doctor in 2 to 3 days. Return to emergency department should symptoms worsen. Prescriptions: Dicyclomine [Bentyl] 10 mg PO QID #30 capsule Ondansetron [Zofran ODT TAB] 4 mg PO Q8HR PRN #12 tab.rapdis PRN Reason: Nausea And Vomiting Referrals: SAVANNAH DOMÍNGUEZ MD [Staff Physician] - 3-5 Days Forms: Work/School Release Form(ED) Time of Disposition: 05:19
[2022-08-17 13:45] VITALS: BP 133/76
== END 2022-08-17 11:35 | disposition home or self-care (01) ==
LOC: ED 21:28
DX: R10.9 Unspecified abdominal pain (principal); I10 Essential (primary) hypertension; Z91.09 Other allergy status, other than to drugs and biological substances
CPT/HCPCS: 36415; 80053; 83690; 85025; 96361; 96374; 99284; J2405